=== PATIENT | female | born 1940 | race Caucasian/White ===

== ENCOUNTER 2018-07-01 07:57 | Inpatient (IN) | payer OTHER ==
[~2018-07-01] VITALS: Ht 162.6 cm; Wt 65.3 kg
[2018-07-01 08:05] VITALS: Ht 162.6 cm; Wt 65.3 kg
[2018-07-01 08:25] LABS: BASOPHIL % 0.4 % (0-2); PLATELET COUNT 162 x10^3mcL (130-400); RED CELL DISTRIBUTION WIDTH 13.8 % (11.5-14.5)
[2018-07-01 08:34] LABS: CALCIUM 9.9 mg/dL (8.5-10.1); CARBON DIOXIDE 28.6 mmol/L (21-32); CHLORIDE SERUM 105 mmol/L (98-107); CREATININE SERUM 1.2 mg/dL (0.6-1.0); GLUCOSE SERUM 121 mg/dL (74-106); POTASSIUM SERUM 4.3 mmol/L (3.5-5.1); SODIUM SERUM 142 mmol/L (136-145)
[2018-07-01 08:39] LABS: ALKALINE PHOSPHATASE 63 U/L (46-116); ALT/SGPT 27 U/L (14-59); AST/SGOT 43 U/L (15-37); BILIRUBIN TOTAL 0.69 mg/dL (0.20-1.00); TOTAL PROTEIN, SERUM 6.7 g/dL (6.4-8.2)
[2018-07-01 08:42] LABS: ALBUMIN 3.2 g/dL (3.4-5.0)
[2018-07-01] MEDS ORDERED: LANTUS SOLOS100 U/M1 (09:04)
[2018-07-01] MEDS ORDERED: ASPIR 8181 MG (09:05)
[2018-07-01] MEDS ORDERED: HUMALOG100 U/ML (09:05)
[2018-07-01] MEDS ORDERED: EPZICOM1 TAB (09:05)
[2018-07-01] MEDS ORDERED: LEVOTHYROXIN0.025 M2 (09:05)
[2018-07-01 11:46] LABS: UA SPECIFIC GRAVITY 1.015 (1.005-1.035); microscopic required? YES; urine erythrocyte TRACE (NEGATIVE)
[2018-07-01 13:22] VITALS: BP 176/63
[2018-07-01 14:57] VITALS: BP 146/54
[2018-07-01 16:50] VITALS: BP 141/61
[2018-07-01 20:49] VITALS: BP 121/61
[2018-07-02 05:33] VITALS: BP 156/65
[2018-07-02 06:46] LABS: PLATELET COUNT 155 x10^3mcL (130-400); RED CELL DISTRIBUTION WIDTH 12.5 % (11.5-14.5)
[2018-07-02 07:11] LABS: CALCIUM 9.3 mg/dL (8.5-10.1); CARBON DIOXIDE 25.5 mmol/L (21-32); CHLORIDE SERUM 106 mmol/L (98-107); CREATININE SERUM 1.1 mg/dL (0.6-1.0); GLUCOSE SERUM 353 mg/dL (74-106); MAGNESIUM 1.7 mg/dL (1.8-2.4); POTASSIUM SERUM 4.4 mmol/L (3.5-5.1); SODIUM SERUM 140 mmol/L (136-145)
[2018-07-02 08:05] VITALS: BP 151/60
[2018-07-02 12:45] VITALS: BP 130/51
[2018-07-02 16:19] VITALS: BP 129/46
[2018-07-02 21:10] VITALS: BP 126/48
[2018-07-03 05:38] VITALS: BP 144/64
[2018-07-03 09:40] VITALS: BP 136/61
[2018-07-03 13:44] VITALS: BP 148/65
[2018-07-03 14:12] VITALS: BP 148/65
[2018-07-03 17:16] VITALS: BP 151/75
[2018-07-03 21:40] VITALS: BP 145/54
[2018-07-04 05:53] VITALS: BP 146/51
[2018-07-04 06:57] LABS: BASOPHIL % 0.7 % (0-2); PLATELET COUNT 155 x10^3mcL (130-400); RED CELL DISTRIBUTION WIDTH 12.1 % (11.5-14.5)
[2018-07-04 07:14] LABS: CARBON DIOXIDE 20.7 mmol/L (21-32); CHLORIDE SERUM 102 mmol/L (98-107); CREATININE SERUM 1.2 mg/dL (0.6-1.0); GLUCOSE SERUM 422 mg/dL (74-106); MAGNESIUM 1.5 mg/dL (1.8-2.4); PHOSPHOROUS 3.5 mg/dL (2.5-4.9); SODIUM SERUM 137 mmol/L (136-145)
[2018-07-04 09:30] VITALS: BP 124/45
[2018-07-04] MEDS ORDERED: LANTUS SOLOS100 U/M1 SQ (10:17)
[2018-07-04] MEDS ORDERED: TOP50 PO (11:59)
[2018-07-04 12:30] VITALS: BP 124/45
[2018-07-04] MEDS ORDERED: EPZICOM1 TAB PO (23:44)
== END 2018-07-04 14:09 | disposition home or self-care (01) | DRG 280 ==
LOC: ED 07:57 → DU 09:41
PROVIDERS: Emergency Medicine; Family Medicine; ADMIT Internal Medicine
DX: I21.4 Non-ST elevation (NSTEMI) myocardial infarction (principal); G93.41 Metabolic encephalopathy; E11.649 Type 2 diabetes mellitus with hypoglycemia without coma; E86.0 Dehydration; N28.9 Disorder of kidney and ureter, unspecified; I12.9 Hypertensive chronic kidney disease with stage 1 through stage 4 chronic kidney disease, or unspecified chronic kidney disease; E11.22 Type 2 diabetes mellitus with diabetic chronic kidney disease; N18.9 Chronic kidney disease, unspecified; E83.42 Hypomagnesemia; E03.9 Hypothyroidism, unspecified; Z68.27 Body mass index [BMI] 27.0-27.9, adult; Z79.82 Long term (current) use of aspirin; Z79.4 Long term (current) use of insulin
CPT/HCPCS: 82652; 82962; 83880; A9500; J1650; J1815; J2785; J3475; J7040; Q0092

== ENCOUNTER 2018-07-04 20:36 | Inpatient (IN) | payer MEDICARE ==
[~2018-07-04] VITALS: Ht 167.6 cm; Wt 72.6 kg
[~2018-07-04 20:36] MED LIST: ASPIR 8181 MG; EPZICOM1 TAB; HUMALOG100 U/ML; LANTUS SOLOS100 U/M1; LANTUS SOLOS100 U/M1 SQ; LEVOTHYROXIN0.025 M2; TOP50 PO
[2018-07-04 20:53] VITALS: Ht 167.6 cm; Wt 72.6 kg
[2018-07-04 22:31] LABS: CALCIUM 9.3 mg/dL (8.5-10.1); CHLORIDE SERUM 98 mmol/L (98-107); CREATININE SERUM 1.5 mg/dL (0.6-1.0); POTASSIUM SERUM 4.4 mmol/L (3.5-5.1); SODIUM SERUM 134 mmol/L (136-145)
[2018-07-04 22:36] LABS: GLUCOSE SERUM 480 mg/dL (74-106)
[2018-07-04] MEDS ORDERED: EPZICOM1 TAB PO (23:44)
[2018-07-05 01:51] LABS: microscopic required? YES; urine erythrocyte TRACE (NEGATIVE)
[2018-07-05 01:58] LABS: MAGNESIUM 1.4 mg/dL (1.8-2.4)
[2018-07-05 02:21] VITALS: BP 131/46
[2018-07-05 04:49] VITALS: BP 133/42
[2018-07-05 06:34] LABS: CALCIUM 8.4 mg/dL (8.5-10.1); CHLORIDE SERUM 106 mmol/L (98-107); CREATININE SERUM 1.2 mg/dL (0.6-1.0); GLUCOSE SERUM 306 mg/dL (74-106); MAGNESIUM 1.5 mg/dL (1.8-2.4); PHOSPHOROUS 3.4 mg/dL (2.5-4.9); POTASSIUM SERUM 4.3 mmol/L (3.5-5.1); SODIUM SERUM 139 mmol/L (136-145)
[2018-07-05 06:59] LABS: BASOPHIL % 0.5 % (0-2); PLATELET COUNT 143 x10^3mcL (130-400); RED CELL DISTRIBUTION WIDTH 13.1 % (11.5-14.5)
[2018-07-05 10:27] VITALS: BP 120/36
[2018-07-05 13:01] VITALS: BP 131/42
[2018-07-05 13:10] VITALS: BP 131/42
== END 2018-07-05 15:24 | disposition home or self-care (01) | DRG 637 ==
LOC: ED 20:36 → DU 07-05 00:24 → MU 07-05 00:24 → DU 07-05 01:30
PROVIDERS: Emergency Medicine; ADMIT Family Medicine
DX: E11.00 Type 2 diabetes mellitus with hyperosmolarity without nonketotic hyperglycemic-hyperosmolar coma (NKHHC) (principal); N17.0 Acute kidney failure with tubular necrosis; N39.0 Urinary tract infection, site not specified; E87.1 Hypo-osmolality and hyponatremia; E11.65 Type 2 diabetes mellitus with hyperglycemia; E11.21 Type 2 diabetes mellitus with diabetic nephropathy; E83.42 Hypomagnesemia; E03.9 Hypothyroidism, unspecified; I10 Essential (primary) hypertension; Z79.4 Long term (current) use of insulin; Z68.24 Body mass index [BMI] 24.0-24.9, adult
CPT/HCPCS: 36600; 82962; 83880; J1815; J3475; J7030

== ENCOUNTER 2018-10-29 11:02 | Emergency (ER) | payer MEDICARE ==
[~2018-10-29] VITALS: Ht 160 cm; Wt 73.9 kg
[~2018-10-29 11:02] MED LIST changes: +EPZICOM1 TAB PO
[2018-10-29 11:22] VITALS: Ht 160 cm; Wt 73.9 kg
[2018-10-29 12:13] LABS: BASOPHIL % 1.3 % (0-2); PLATELET COUNT 167 x10^3mcL (130-400); RED CELL DISTRIBUTION WIDTH 13.1 % (11.5-14.5)
[2018-10-29 12:29] LABS: CALCIUM 9.6 mg/dL (8.5-10.1); CARBON DIOXIDE 26.5 mmol/L (21-32); CHLORIDE SERUM 106 mmol/L (98-107); CREATININE SERUM 1.6 mg/dL (0.6-1.0); GLUCOSE SERUM 182 mg/dL (74-106); POTASSIUM SERUM 5.4 mmol/L (3.5-5.1); SODIUM SERUM 140 mmol/L (136-145)
[2018-10-29 12:33] LABS: ALBUMIN 3.5 g/dL (3.4-5.0); ALKALINE PHOSPHATASE 71 U/L (46-116); ALT/SGPT 19 U/L (14-59); AST/SGOT 11 U/L (15-37); BILIRUBIN TOTAL 0.35 mg/dL (0.20-1.00); TOTAL PROTEIN, SERUM 6.7 g/dL (6.4-8.2)
[2018-10-29 13:31] VITALS: BP 125/61
== END 2018-10-29 13:35 | disposition home or self-care (01) ==
LOC: ED 11:02
PROVIDERS: Emergency Medicine
DX: R20.2 Paresthesia of skin (principal); M79.642 Pain in left hand; I10 Essential (primary) hypertension; E11.9 Type 2 diabetes mellitus without complications; Z86.73 Personal history of transient ischemic attack (TIA), and cerebral infarction without residual deficits; Z88.0 Allergy status to penicillin
CPT/HCPCS: 36415; Q0092

== ENCOUNTER 2020-05-06 19:42 | Emergency (ER) | payer MEDICARE ==
[~2020-05-06] VITALS: Ht 162.6 cm; Wt 72.6 kg
[2020-05-06 20:14] VITALS: Ht 162.6 cm; Wt 72.6 kg
[2020-05-06 23:19] LABS: CALCIUM 9.7 mg/dL (8.5-10.1); CARBON DIOXIDE 26.3 mmol/L (21-32); CHLORIDE SERUM 99 mmol/L (98-107); CREATININE SERUM 1.7 mg/dL (0.6-1.0); GLUCOSE SERUM 92 mg/dL (74-106); POTASSIUM SERUM 4.4 mmol/L (3.5-5.1); SODIUM SERUM 135 mmol/L (136-145)
[2020-05-06 23:36] LABS: BASOPHIL % 0.4 % (0-2); PLATELET COUNT 172 x10^3mcL (130-400); RED CELL DISTRIBUTION WIDTH 13.9 % (11.5-14.5)
[2020-05-06 23:39] LABS: ALBUMIN 3.7 g/dL (3.4-5.0); ALKALINE PHOSPHATASE 47 U/L (46-116); ALT/SGPT 19 U/L (14-59); AST/SGOT 21 U/L (15-37); BILIRUBIN TOTAL 0.55 mg/dL (0.20-1.00); TOTAL PROTEIN, SERUM 7.2 g/dL (6.4-8.2)
[2020-05-07 01:18] LABS: UA SPECIFIC GRAVITY 1.015 (1.005-1.035); microscopic required? YES; urine erythrocyte TRACE (NEGATIVE)
[2020-05-07 05:48] VITALS: BP 137/54
== END 2020-05-07 05:48 | disposition home or self-care (01) ==
LOC: ED 19:42
DX: R53.1 Weakness (principal); E86.0 Dehydration; N39.0 Urinary tract infection, site not specified; I10 Essential (primary) hypertension; E11.9 Type 2 diabetes mellitus without complications; Z88.0 Allergy status to penicillin; Z20.828 Contact with and (suspected) exposure to other viral communicable diseases
CPT/HCPCS: 82962; J7030